=== PATIENT | female | born 1970 | race Two or more races ===

== ENCOUNTER 2019-08-05 20:09 | Emergency (ER) | payer OTHER ==
[~2019-08-05] VITALS: Ht 165.1 cm; Wt 59.0 kg
[2019-08-05 20:09] VITALS: BP 135/79
== END 2019-08-05 21:08 | disposition home or self-care (01) ==
LOC: ER 20:14
DX: R50.9 Fever, unspecified (principal); R05 Cough; R53.1 Weakness

== ENCOUNTER 2021-01-30 13:28 | Emergency (ER) | payer OTHER ==
[~2021-01-30] VITALS: Ht 165.1 cm; Wt 61.2 kg
[2021-01-30 13:52] VITALS: BP 125/84
--- NOTE | 2021-01-30 15:20 | NUR ---
Patient discharged to home in stable condition. Written and verbal after care instructions given. Patient verbalizes understanding of instruction.
== END 2021-01-30 15:22 | disposition home or self-care (01) ==
LOC: ER 13:33
DX: B34.9 Viral infection, unspecified (principal); R51.9 Headache, unspecified; R11.2 Nausea with vomiting, unspecified; R05 Cough; Z20.822 Contact with and (suspected) exposure to COVID-19
CPT/HCPCS: 71045; 87426; 99284; C9803

== ENCOUNTER 2021-02-02 18:11 | Emergency (ER) | payer OTHER ==
[~2021-02-02] VITALS: Ht 165.1 cm; Wt 61.2 kg
[2021-02-02 19:00] VITALS: BP 126/77
== END 2021-02-02 19:24 | disposition home or self-care (01) ==
LOC: ER 18:13
DX: R05 Cough (principal); R50.9 Fever, unspecified